=== PATIENT | female | born 1950 | race Caucasian/White ===

== ENCOUNTER 2018-10-15 12:35 | Emergency (ER) | payer MEDICARE, BC ==
[2018-10-15] MEDS ORDERED: DEXAMETHASONE 10 MG/ML VIAL IM STA (12:54)
[2018-10-15] MEDS ORDERED: IPRATROPIUM/ALBUTEROL 3 ML NEB INH STA (12:54)
--- NOTE | 2018-10-15 12:56 | ED Physician Documentation ---
PD HPI DYSPNEA - Stated complaint Stated Complaint: SOA - Chief complaint Chief Complaint: Resp - History obtained from History obtained from: Patient - History of Present Illness Timing - onset: Other (68-year-old woman who is visiting from [place]. She has a history of chemical induced asthma and COPD. At her baseline she often does not wear oxygen she gets flares every now and then which improved with steroids and antibiotics. She had a similar flare about 2 weeks ago which after a course of dexamethasone (she does not do well with prednisone) and doxycycline, she got back to her baseline. Over the last 4 days since getting here she had an increased productive yellow cough and increased shortness of breath and oxygen requirement. She denies fevers, chest pain, or new pedal edema, she does always have some pedal edema.) Review of Systems Constitutional: denies: Fever, Chills Cardiac: reports: Pedal edema. denies: Chest pain / pressure, Palpitations, Calf pain Respiratory: reports: Dyspnea, Cough, Wheezing. denies: Hemoptysis GI: denies: Abdominal Pain PD PAST MEDICAL HISTORY - Present Medications Home Medications: Ambulatory Orders Medication Instructions Recorded Confirmed Azithromycin 1 tab PO DAILY #4 tablet 10/15/18 Levalbuterol HCl [Xopenex] 1.25 mg IH Q4HR PRN #1 b 10/15/18 dexAMETHasone [Decadron] 4 mg PO BID #14 tablet 10/15/18 - Allergies Allergies/Adverse Reactions: Allergies Allergy/AdvReac Type Severity Reaction Status Date / Time amoxicillin [From Augmentin] Allergy Nausea Verified 10/15/18 13:36 clarithromycin [From Biaxin] Allergy Hives Verified 10/15/18 13:36 clavulanic acid Allergy Nausea Verified 10/15/18 13:36 [From Augmentin] codeine Allergy Itching Verified 10/15/18 13:36 meperidine [From Demerol] Allergy Nausea Verified 10/15/18 13:36 morphine Allergy Nausea Verified 10/15/18 13:36 ofloxacin [From Floxin] Allergy Nausea Verified 10/15/18 13:36 Sulfa (Sulfonamide Allergy Itching Verified 10/15/18 13:36 Antibiotics) PD ED PE NORMAL - Vitals Vital signs reviewed: Yes - General General: Alert and oriented X 3, Other (Slightly labored pursed lip breathing, speaking in full sentences.) - Cardiac Cardiac: RRR, No murmur - Respiratory Respiratory: Other (Moderate but not great air motion, wheezy throughout, no focal findings.) - Abdomen Abdomen: Non tender - Extremities Extremities: Other (Trace symmetric pedal edema pitting) - Neuro Neuro: Alert and oriented X 3, Normal speech Results - Vitals Vitals: Vital Signs - 24 hr 10/15/18 10/15/18 10/15/18 12:38 13:01 13:05 Temperature 36.8 C Heart Rate 99 56 L 100 Respiratory 28 H 21 20 Rate Blood Pressure 152/95 H 158/102 H O2 Saturation 94 96 10/15/18 13:29 Temperature Heart Rate 98 Respiratory 20 Rate Blood Pressure O2 Saturation Oxygen O2 Source Nasal cannula Oxygen Flow Rate 4 PD MEDICAL DECISION MAKING - ED course ED course: 68-year-old woman presents with COPD exacerbation. 3 nebs in the department and feeling better. Still wheezy but requesting discharge. Note that she does better on dexamethasone than she does with prednisone and she was given IM dexa methasone here. She has DuoNeb at home as well as Tessalon. She was just on doxycycline so we will switch her over to Zithromax. Note Biaxin allergy but she says she has had Zithromax without issue in the past. Departure - Departure Disposition: 01 Home, Self Care Clinical Impression: COPD exacerbation Condition: Good Record reviewed to determine appropriate education?: Yes Instructions: COPD Dc Prescriptions: Levalbuterol HCl [Xopenex] 1.25 mg IH Q4HR PRN #1 b PRN Reason: Wheezing Azithromycin 1 tab PO DAILY #4 tablet dexAMETHasone [Decadron] 4 mg PO BID #14 tablet Comments: Call your doctor to arrange a follow-up appointment, make the next available appointment. In the interim, return anytime if worse or if new symptoms develop. Your blood pressure was elevated today on check into the emergency department. This does not mean that you have hypertension, it is a common phenomenon to come to the emergency department and have elevated blood pressure. I recommend that you see your primary care physician within the week to have it rechecked when you are feeling better.
[2018-10-15] MEDS ORDERED: LEVALBUTEROL 1.25 MG/3 ML NEB INH STA (13:15)
[2018-10-15] MEDS ORDERED: LEVALBUTEROL 1.25 MG/3 ML NEB INH ONE (13:36)
[2018-10-15] MEDS ORDERED: AZITHROMYCIN 250 MG TABLET PO STA (14:05)
[2018-10-15 14:17] VITALS: BP 137/107
== END 2018-10-15 14:15 | disposition home or self-care (01) ==
LOC: ED 12:35
DX: J44.1 Chronic obstructive pulmonary disease with (acute) exacerbation (principal); R03.0 Elevated blood-pressure reading, without diagnosis of hypertension
CPT/HCPCS: 94640; 94664; 96372; 99283; 99284; A9270